=== PATIENT | female | born 1950 | race Caucasian/White ===

== ENCOUNTER 2018-04-14 06:59 | Day surgery (SDC) | payer MEDICARE ==
[2018-04-13 11:24] LABS: BASOPHILS % (AUTO) 0.5 % (0-1); EOSINOPHILS # (AUTO) 0.2 X10'3 (0-0.9); EOSINOPHILS % (AUTO) 3.3 % (0-6); HEMATOCRIT 37.3 % (35.0-45.0); HEMOGLOBIN 12.8 g/dl (12.0-16.0); LYMPHOCYTES # (AUTO) 2.3 X10'3 (1.1-4.8); LYMPHOCYTES % (AUTO) 31.3 % (21-51); MEAN CORPUSCULAR HGB CONC 34.2 % (33.0-36.5); MEAN CORPUSCULAR VOLUME 87.7 FL (78-98); MEAN PLATELET VOLUME 9.2 FL (7.4-10.4); MONOCYTES # (AUTO) 0.5 X10'3 (0-0.9); MONOCYTES % (AUTO) 6.7 % (2-12); NEUTROPHILS # (AUTO) 4.2 X10'3 (1.8-7.7); NEUTROPHILS % (AUTO) 58.2 % (42-75); PLATELET COUNT 190 X10'3 (140-440); RED BLOOD COUNT 4.26 X10'6 (4.20-5.60); RED CELL DISTRIBUTION WIDTH 13.1 % (11.5-14.5); WHITE BLOOD COUNT 7.3 X10'3 (4.5-11.0)
[2018-04-13 11:35] LABS: PARTIAL THROMBOPLASTIN TIME 22 SECONDS (22-32); PROTHROMBIN TIME 10.4 SECONDS (9.0-12.0)
[2018-04-13 11:40] LABS: ALBUMIN 3.9 G/DL (3.4-5.0); ANION GAP 9 (8-16); BLOOD UREA NITROGEN 17 MG/DL (7-18); BUN/CREATININE RATIO 19.8 (6.6-38.0); CALCIUM 9.1 MG/DL (8.5-10.1); CHLORIDE 104 MMOL/L (99-107); CREATININE 0.86 MG/DL (0.40-0.90); GLUCOSE 98 MG/DL (70-104); POTASSIUM 4.1 MMOL/L (3.5-5.1); SODIUM 141 MMOL/L (135-145); TOTAL CARBON DIOXIDE 28.4 MMOL/L (24-32); eGFR 65 ML/MIN
[2018-04-14] VITALS (15 sets, daily range): BP systolic 100–193; BP diastolic 35–81
[~2018-04-14] VITALS: Ht 160 cm; Wt 114.6 kg
[2018-04-14] MEDS ORDERED: diphenhydrAMINE 25mg capsule PO PRN (07:35)
[2018-04-14] MEDS ORDERED: normal saline 1000ml 1,000 ML IV SCH (07:35)
[2018-04-14] MEDS ORDERED: LORazepam 0.5 MG tablet PO PRN (07:35)
[2018-04-14] MEDS ORDERED: TRAM50TA2 PO (07:38)
[2018-04-14] MEDS ORDERED: CALC-1197 PO (07:38)
[2018-04-14] MEDS ORDERED: IBUP-1986 PO (07:38)
[2018-04-14] MEDS ORDERED: ATOR80TA PO (07:38)
[2018-04-14] MEDS ORDERED: LISI-600 PO (07:38)
[2018-04-14] MEDS ORDERED: ACET-2119 PO (07:38)
[2018-04-14] MEDS ORDERED: heparin 1,000unit/ml 10ml vial 10 ML ONE (09:44)
[2018-04-14] MEDS ORDERED: iohexol 350 MG/ML 50ML vial IV ONE (09:44)
[2018-04-14] MEDS ORDERED: iohexol 350MG/ML 100ml bottle IV ONE (09:44)
[2018-04-14] MEDS ORDERED: nitroGLYCERIN-Tridil 50MG/D5W 250 ML IV ONE (09:44)
[2018-04-14] MEDS ORDERED: LIDOcaine 1% 30ml preserv. free vial ONE (09:44)
[2018-04-14] MEDS ORDERED: midazolam 2 mg/2 ml injection ONE (09:45)
[2018-04-14] MEDS ORDERED: fentaNYL/PF 50MCG/1 ML 2ML syringe ONE (09:45)
== END 2018-04-14 20:30 | disposition home or self-care (01) ==
LOC: SSTAY O 06:59
PROVIDERS: ATTEND Internal Medicine Cardiovascular Disease
DX: I25.118 Atherosclerotic heart disease of native coronary artery with other forms of angina pectoris (principal); I10 Essential (primary) hypertension; E66.9 Obesity, unspecified; E78.5 Hyperlipidemia, unspecified; Z79.1 Long term (current) use of non-steroidal anti-inflammatories (NSAID); Z79.891 Long term (current) use of opiate analgesic; Z90.49 Acquired absence of other specified parts of digestive tract; Z79.899 Other long term (current) drug therapy; Z98.890 Other specified postprocedural states; Z82.49 Family history of ischemic heart disease and other diseases of the circulatory system; Z68.41 Body mass index [BMI] 40.0-44.9, adult
CPT/HCPCS: 36415; 80048; 85025; 85610; 85730; 93005; 93458; 99152; 99153; A6257; C1760; C1769; J1644; J2250; J3010; J3490; J7030; Q0163; Q9967; A4620